=== PATIENT | female | born 1975 | race Caucasian/White ===

== ENCOUNTER 2019-02-24 10:36 | Outpatient (CLI) | payer BC, SELFPAY ==
--- NOTE | 2019-02-24 10:45 | MM_ITS ---
WS: [id number] BILATERAL SCREENING DIGITAL MAMMOGRAM WITH CAD HISTORY: SCREENING COMPARISON: 08/11/2017 and 06/14/2015 Bilateral CC and MLO views submitted. Computer aided detection analyzed. Breast composition: There are scattered areas of fibroglandular density. No suspicious masses, microc alcifications or architectural distortion. MM/[id number] IMPRESSION: BI-RADS: 1-Negative FOLLOW UP: 1 Year Follow-up
== END 2019-02-24 10:37 | disposition home or self-care (01) ==
LOC: RADSHAW 10:41
PROVIDERS: Family Provider Family Medicine; Visit Provider Family Medicine
DX: Z12.31 Encounter for screening mammogram for malignant neoplasm of breast (principal)
CPT/HCPCS: 77067

== ENCOUNTER → 2019-06-24 13:54 | Outpatient (BNVA) | payer BC, SELFPAY | PROVIDERS: Family Provider Family Medicine; Visit Provider Family Medicine | DX: R73.03 Prediabetes (principal); R23.8 Other skin changes | CPT/HCPCS: 80053; 80061; 83036; 85025 ==

== ENCOUNTER → 2019-09-27 09:16 | Outpatient (BNVA) | payer BC, SELFPAY | PROVIDERS: Family Provider Family Medicine; PCP Family Medicine; Visit Provider Family Medicine | DX: E11.9 Type 2 diabetes mellitus without complications (principal); J30.2 Other seasonal allergic rhinitis | CPT/HCPCS: 80053; 82043; 83036 ==

== ENCOUNTER → 2019-12-17 09:01 | Outpatient (BNVA) | payer BC, SELFPAY | PROVIDERS: Family Provider Family Medicine; PCP Family Medicine; Visit Provider Family Medicine | DX: E11.9 Type 2 diabetes mellitus without complications (principal) | CPT/HCPCS: 80053; 83036 ==

== ENCOUNTER → 2020-05-02 10:05 | Outpatient (BNVA) | payer BC, SELFPAY | PROVIDERS: Family Provider Family Medicine; PCP Family Medicine; Visit Provider Family Medicine | DX: E11.9 Type 2 diabetes mellitus without complications (principal) | CPT/HCPCS: 80053; 80061; 83036; 85025 ==

== ENCOUNTER 2020-06-05 12:47 | Outpatient (CLI) | payer BC, SELFPAY ==
--- NOTE | 2020-06-05 12:55 | MM_ITS ---
WS: [id number] BILATERAL DIGITAL SCREENING MAMMOGRAPHY WITH CAD CLINICAL INFORMATION: Z12.39 - Encounter for other screening for malignant neoplasm of breast HISTORY: Screening mammogram. No current complaints. COMPARISON: February 24, 2019 TECHNIQUE: Bilateral CC and MLO views. FINDINGS: Scattered fibroglandular densities bilaterally. No suspicious focal mass, asymmetry, calcifications, or architectural distortion. No evidence of malignancy. MM/[place] [id number] IMPRESSION: BI-RADS: 1-Negative FOLLOW UP: 1 Year Follow-up Recommend return to annual screening mammography.
== END 2020-06-05 12:48 | disposition home or self-care (01) ==
LOC: RADSHAW 12:51
PROVIDERS: PCP Family Medicine; Visit Provider Family Medicine
DX: Z12.31 Encounter for screening mammogram for malignant neoplasm of breast (principal)
CPT/HCPCS: 77067

== ENCOUNTER → 2020-11-06 11:20 | Outpatient (BNVA) | payer BC, SELFPAY | PROVIDERS: PCP Family Medicine; Visit Provider Family Medicine | DX: N95.1 Menopausal and female climacteric states (principal); E11.9 Type 2 diabetes mellitus without complications | CPT/HCPCS: 80053; 83036 ==

== ENCOUNTER → 2021-05-07 11:28 | Outpatient (BNVA) | payer BC, SELFPAY | PROVIDERS: PCP Family Medicine; Visit Provider Family Medicine | DX: E11.9 Type 2 diabetes mellitus without complications (principal); Z12.31 Encounter for screening mammogram for malignant neoplasm of breast | CPT/HCPCS: 80053; 80061; 82043; 83036; 85025 ==

== ENCOUNTER 2021-06-18 09:59 | Outpatient (CLI) | payer BC, SELFPAY ==
--- NOTE | 2021-06-18 10:08 | MM_ITS ---
WS: [id number] BILATERAL SCREENING 3D TOMOSYNTHESIS DIGITAL MAMMOGRAM WITH CAD HISTORY: screening mammogram COMPARISON: 06/05/2020, 02/24/2019 and 08/11/2017 Bilateral CC and MLO views submitted. Computer aided detection analyzed. Breast composition: There are scattered areas of fibroglandular density. No suspicious masses, microc alcifications or architectural distortion. MM/[id number] IMPRESSION: BI-RADS: 1-Negative FOLLOW UP: 1 Year Follow-up
--- NOTE | 2021-06-18 10:15 | US_ITS ---
WS: [id number] TRANSABDOMINAL PELVIC AND TRANSVAGINAL PELVIC ULTRASOUND HISTORY: R10.2 - Pelvic and perineal pain COMPARISON: None available. Status post hysterectomy. No midline mass. Right ovary: Not identified. No adnexal mass. Left ovary: 1.1 cm x 0.6 cm x 1.0 cm. Small atrophic ovary. No mass identified. No free fluid. US/US pelvic with transvaginal IMPRESSION: 1. Status post hysterectomy. 2. RIGHT ovary not identified. 3. Negative LEFT ovary for age.
== END 2021-06-18 10:00 | disposition home or self-care (01) ==
LOC: RAD 10:00
PROVIDERS: PCP Family Medicine; Visit Provider Nurse Practitioner Women's Health
DX: Z12.31 Encounter for screening mammogram for malignant neoplasm of breast (principal); R10.2 Pelvic and perineal pain; Z90.710 Acquired absence of both cervix and uterus
CPT/HCPCS: 76830; 76856; 77063; 77067

== ENCOUNTER 2021-08-17 13:13 | Emergency (ER) | payer BC, SELFPAY ==
--- NOTE | 2021-08-17 13:14 | XR_ITS ---
WS: [id number] XR ankle RT min 3V* [id number] REASON FOR EXAM: injury FINDINGS: No fracture identified. Mild narrowing of the medial clear space, otherwise the ankle mortise is intact and well preserved. Soft tissue swelling over the lateral malleolus. XR/XR ankle RT min 3V* [id number] IMPRESSION: Soft tissue injury with no bony or joint abnormality identified.
[2021-08-17 13:54] VITALS: BP 125/78; PULSE 82; RESP 15; TEMP 36.7; O2SAT 94; BMI 32.3
--- NOTE | 2021-08-17 14:00 | ED_ITS ---
HPI - Extremity Injury (Lower) General: Chief Complaint: Extremity Injury, Lower Stated Complaint: right ankle injury Time Seen by Provider: 08/17/21 14:00 Source: patient Mode of arrival: ambulatory Limitations: no limitations History of Present Illness: Patient is a 45-year-old female who presents to ED today with a complaint of a right ankle injury that she sustained yesterday after stepping in a hole and twisting it. Patient states she has been ambulatory on the extremity without assistance since the injury although reportedly states this is painful. She has no other injuries or complaints at this time. MD complaint: ankle injury Onset (ago): day(s) (yesterday) Injury: Right: ankle Place: home Relieving factors: immobilization Exacerbating factors: weight bearing, movement and palpation Associated symptoms: Reports no associated symptoms Other symptoms: none Review of Systems Musc: Reports: joint pain (R ankle) and joint swelling (R ankle); Denies: extremity pain or extremity swelling Neuro: Denies: numbness in extremities, weakness in extremities or sensory changes PFSH ED PFSH: Medical History Lichen sclerosus No pertinent past medical history neghx: htn,thyroid,dvt/pe PCP: Dr. Modi Seasonal allergies Type 2 diabetes mellitus, without long-term current use of insulin Surgical History History of hysterectomy (~05/08/17) Total abdominal hysterectomy, bilateral salpingectomy, left oophorectomy, cystoscopy by Dr Devine on 05/08/17 and Repair of muscular layers of the rectum and colonoscopy performed by Dr. Kenyon ------> pathology showed uteromegaly with the uterus measuring 2829 g. Cer vix showed no significant alteration, cul-de-sac peritoneum showed endometriosis. Lower uterine segment showed excoriated mucosa. Endometrium showed proliferative endometrium. The myometrium short ileal myoma. Bilateral fallopian tubes where normal. Physiological left ovary with benign cortical cyst. Family History Mother Hypertension Diabetes Breast cancer diagnosed in her 50s Grandmother Colon cancer Paternal--dx age 70's Father Diabetes Unknown No problems noted. Denies family history of Ovarian cancer Heart disease Hypercholesteremia Uterine cancer Thyroid disease Stroke Social History Smoking and tobacco status: never smoked Physical Exam Const: COMMON NORMALS: no acute distress, patient oriented x3, no limitations and alert GENERAL APPEARANCE: cooperative Extremity: COMMON NORMALS: capillary refill normal and no calf tenderness GENERAL: Yes normal exam except as noted RIGHT LOWER EXTREMITY: Yes foot & digits (swelling throughout ankle joint; maximum tenderness medially) Right ankle: Yes neurovascular exam (normal ) Neuro: COMMON NORMALS: patient oriented x3, moves all extremities, no focal motor deficits and no sensory deficits noted SENSORIUM/ORIENTATION: Yes alert Course Vital Signs: Vital signs: Vital Signs Temperature 98.1 F 08/17/21 13:54 Pulse Rate 82 08/17/21 13:54 Respiratory Rate 15 08/17/21 13:54 Blood Pressure 125/78 08/17/21 13:54 Pulse Oximetry 94 08/17/21 13:54 MDM - Extremity Injury (Lower) Medical Decision Making XR negative. Recommend conservative treatment/RICE at home. Follow up with PCP in 1-2 weeks if symptoms are not improving. Lab Data Radiology Impressions Ankle X-Ray 08/17/21 13:14 IMPRESSION: Soft tissue injury with no bony or joint abnormality identified. Discharge Plan Discharge Patient Disposition: Home Clinical Impression: Sprain of right ankle Condition: Stable Prescriptions: No Action loratadine [Allergy Relief (loratadine)] 10 mg tablet 10 mg PO DAILY 0RF estradiol 1 mg tablet 1 mg PO DAILY Qty: 90 3RF clobetasol 0.05 % ointment 1 applic topical .twice weekly Qty: 30 2RF Discharge Orders: Discharge ED (Routine); Ordered 08/17/21 Ordered By: Jil Garcia Referrals: Astrid Modi DO [Primary Care Provider] - Patient Instructions: Ankle Sprain (DC), RICE Therapy Coding Level of Care Code ED Room Server for Chg Fwd Exam Expanded Problem Focused
== END 2021-08-17 14:23 | disposition home or self-care (01) ==
PROVIDERS: Emergency Provider Physician Assistant; PCP Family Medicine
DX: S93.401A Sprain of unspecified ligament of right ankle, initial encounter (principal); E11.9 Type 2 diabetes mellitus without complications; X50.1XXA Overexertion from prolonged static or awkward postures, initial encounter
CPT/HCPCS: 73610; 99283

== ENCOUNTER → 2021-11-05 09:44 | Outpatient (BNVA) | payer BC, SELFPAY | PROVIDERS: PCP Family Medicine; Visit Provider Family Medicine | DX: E11.9 Type 2 diabetes mellitus without complications (principal) | CPT/HCPCS: 80053; 83036 ==

== ENCOUNTER 2022-07-01 08:45 | Outpatient (CLI) | payer BC, SELFPAY ==
--- NOTE | 2022-07-01 08:52 | MM_ITS ---
WS: [id number] SCREENING DIGITAL TOMOSYNTHESIS MAMMOGRAM WITH CAD HISTORY: Z12.39 - Encounter for other screening for malignant neoplasm... COMPARISON: 06/18/2021 and 06/05/2020 Bilateral CC and MLO with tomosynthesis views submitted. Synthetic mammography reviewed. Computer aid ed detection analyzed. Breast composition: There are scattered areas of fibroglandular density. No suspicious masses, microc alcifications or architectural distortion. MM/[place] [id number] IMPRESSION: BI-RADS: 1-Negative FOLLOW UP: 1 Year Follow-up
== END 2022-07-01 08:46 | disposition home or self-care (01) ==
PROVIDERS: PCP Family Medicine; Visit Provider Nurse Practitioner Women's Health
DX: Z12.31 Encounter for screening mammogram for malignant neoplasm of breast (principal)
CPT/HCPCS: 77063; 77067

== ENCOUNTER 2023-07-25 09:12 | Outpatient (CLI) | payer OTHER, SELFPAY ==
--- NOTE | 2023-07-25 09:30 | MM_ITS ---
WS: [id number] BILATERAL SCREENING DIGITAL TOMOSYNTHESIS MAMMOGRAM WITH CAD HISTORY: Z12.39 - Encounter for other screening for malignant neop... COMPARISON: 07/01/2022, 06/18/2021 and 08/11/2017 Bilateral CC and MLO views with tomosynthesis and synthetic mammography submitted. Computer aided det ection analyzed. Breast composition: There are scattered areas of fibroglandular density. No suspicious masses, microc alcifications or architectural distortion. MM/[place] [id number] IMPRESSION: BI-RADS: 1-Negative FOLLOW UP: 1 Year Follow-up
== END 2023-07-25 09:13 | disposition home or self-care (01) ==
LOC: RAD 09:13
PROVIDERS: PCP Family Medicine; Visit Provider Nurse Practitioner Women's Health
DX: Z12.31 Encounter for screening mammogram for malignant neoplasm of breast (principal); R92.323 Mammographic fibroglandular density, bilateral breasts
CPT/HCPCS: 77063; 77067

== ENCOUNTER → 2023-10-31 13:58 | Outpatient (BNVA) | payer OTHER, SELFPAY | PROVIDERS: PCP Family Medicine; Visit Provider Family Medicine | DX: E11.9 Type 2 diabetes mellitus without complications (principal) | CPT/HCPCS: 80053; 80061; 83036; 84439; 84443; 85025 ==

== ENCOUNTER 2024-07-27 07:57 | Outpatient (CLI) | payer OTHER, SELFPAY ==
--- NOTE | 2024-07-27 08:20 | MM_ITS ---
WS: [id number] BILATERAL 3D TOMOSYNTHESIS DIGITAL SCREENING MAMMOGRAPHY WITH CAD CLINICAL INFORMATION: Z12.31 - Encounter for screening mammogram for malignant ... HISTORY: Screening mammogram. No current complaints. COMPARISON: 2023 TECHNIQUE: Bilateral CC and MLO views. FINDINGS: Scattered fibroglandular densities bilaterally. No suspicious focal mass, asymmetry, calcifications, or architectural distortion. No evidence of malignancy. MM/MM scr tomosynthesis [id number] IMPRESSION: DENSITY: There are scattered areas of fibroglandular density. BI-RADS: 1 - Negative. FOLLOW UP: 1 Year Follow-up Recommend return to annual screening mammography.
== END 2024-07-27 07:58 | disposition home or self-care (01) ==
PROVIDERS: PCP Family Medicine; Visit Provider Nurse Practitioner Women's Health
DX: Z12.31 Encounter for screening mammogram for malignant neoplasm of breast (principal); R92.323 Mammographic fibroglandular density, bilateral breasts
CPT/HCPCS: 77063; 77067